=== PATIENT | male | born 1975 | race Caucasian/White ===

== ENCOUNTER 2022-10-16 20:54 | Emergency (ER) | payer MEDICAID, SELFPAY ==
[2022-10-16 21:08] VITALS: BP 152/70; PULSE 79; RESP 16; TEMP 36.7; O2SAT 98; BMI 31.7
--- NOTE | 2022-10-16 21:51 | HMH.EDWNDL ---
Discharge Plan Disposition Patient Disposition: Home, Self-Care Prescriptions Prescriptions: New cephalexin [cephalexin] 500 mg capsule 500 mg PO TID Qty: 30 0RF Referrals Follow up/Referrals: Provider,Referral, MD [Primary Care Provider] - See instructions Activity Restrictions/Add. Instructions Additional Instructions/Restrictions: suture out 10-12 days Clinical Impressions Clinical Impression: Laceration Instructions Patient Instructions: DI for Laceration Repair Discharge ED Provider: Clare (ED)Carter Wound/Laceration HPI General Chief Complaint: Wound/Laceration Stated Complaint: AO 10/16, left knee lac Time Seen by Provider: 10/16/22 21:51 Mode of Arrival: Family Vehicle Source of Information: Patient and Medical Record Limitations: No Limitations Description of Symptoms (Recalled from ER Triage Doc. by RN): 47 yo male presents with CC of accidental self-inflicted laceration from a supervisor transferring and boxing while opening a box. location: left medial patella area. occurred at approx 11am earlier this date. PMH: hypertension,hyperlipidemia. Smokes 1ppd, occasional marijuana use. denies etoh. cleaned with soap/water and bandaged till arrival. wound bed appears clean, beefy red,edges clean, no sign of FB present. UTD on tetanus immunization. Pain 4/10. History of Present Illness HPI narrative: laceration lt thigh with supervisor transferring and boxing today Onset (ago): hour(s) Extremity Location: Left: thigh Place: home Patient tetanus UTD: Yes Context: sharp object use Associated symptoms: none Related Data Previous Rx's Medication Instructions Recorded cephalexin 500 mg capsule 500 mg PO TID #30 caps 10/16/22 Allergies Allergy/AdvReac Type Severity Reaction Status Date / Time No Known Allergies Allergy Verified 10/16/22 21:15 [facility] Disclaimer: The information contained in this section may have been updated after the patient was seen, as this information can be updated by other users. Social History Smoking Status: Current every day smoker alcohol intake: never current occupational status: employed Travel in the last 8 weeks: None ROS Obtained: Yes All systems reviewed & no additional complaints except as documented Physical Exam General General appearance: alert Head Head exam: normocephalic Eye Eye exam: Present PERRL and EOMI ENT ENT exam: Present mucous membranes moist Neck Neck exam: Present trachea midline Respiratory Respiratory exam: Absent respiratory distress Cardiovascular Cardiovascular exam: Present regular rate Abdominal Exam Abdominal exam: Present soft Extremities Exam Extremities exam: Present full ROM Neurological Exam Neurological exam: Present alert, oriented X3 and CN II-XII intact; Absent motor sensory deficit Psychiatric Psychiatric exam: Present normal affect Skin Skin exam: Present other (1 cm lac lt thigh with neurovascular ok and jt ok ); Absent rash Medical Decision Making Medical Records Medical records reviewed: Yes I reviewed the patient's medical records. [facility] Inquiry Pt receiving controlled substance: No Vital Signs: 10/16/22 21:08 Temperature 98.1 F Temperature Source Oral Pulse Rate [Right Brachial] 79 Respiratory Rate 16 Blood Pressure [Right Arm] 152/70 H Blood Pressure Mean [Right Arm] 97 Blood Pressure Source [Right Arm] Automatic Cuff Blood Pressure Position [Right Arm] Sitting 02 Sat by Pulse Oximetry 98 Oxygen Delivery Method Room Air Orders (Tests/Meds): ED MEDICATIONS Generic Name Dose Route Start Last Admin Trade Name Freq PRN Reason Stop Dose Admin Cephalexin HCl 500 mg 10/16/22 22:06 Cephalexin 500mg Capsule PO 10/16/22 22:07 ONCE ONE Medical Decision Narrative: laceration lt thigh with neurovascular ok and no fb and no evid of infection and sutured and suture out 10-12 days Procedures Laceration Laceration 1: Site: lower extremity Side (If applicable): left Size
[2022-10-16 22:22] VITALS: BP 146/90; PULSE 67; RESP 18; TEMP 36.6; O2SAT 98
== END 2022-10-16 22:22 | disposition home or self-care (01) ==
PROVIDERS: Emergency Provider Emergency Medicine
DX: S71.112A Laceration without foreign body, left thigh, initial encounter (principal); F17.200 Nicotine dependence, unspecified, uncomplicated; W26.8XXA Contact with other sharp object(s), not elsewhere classified, initial encounter
CPT/HCPCS: 12031; 99283; 99284

== ENCOUNTER 2023-04-27 07:39 | Emergency (ER) | payer SELFPAY ==
[2023-04-27 07:40] VITALS: BP 167/109; PULSE 85; RESP 18; TEMP 36.7; O2SAT 97; BMI 29.4
[2023-04-27 07:51] LABS: Influenza A, PCR Not Detected (NotDetected); Influenza B, PCR Not Detected (NotDetected)
[2023-04-27 08:00] VITALS: BP 139/92; PULSE 96; RESP 18; O2SAT 96
--- NOTE | 2023-04-27 08:01 | PC.NURSE ---
DR STAHL AT BEDSIDE
--- NOTE | 2023-04-27 08:04 | XR_ITS ---
PROCEDURE INFORMATION: Exam: XR Chest Exam date and time: 04/27/2023 8:13 AM Age: 48 years old Clinical indication: Cough and shortness of breath; Smoker's cough; Additional info: SOA TECHNIQUE: Imaging protocol: Radiologic exam of the chest. Views: 1 view. COMPARISON: No relevant prior studies available. FINDINGS: Lungs: Unremarkable. No consolidation. Pleural spaces: Unremarkable. No pleural effusion. No pneumothorax. Heart/Mediastinum: Unremarkable. No cardiomegaly. Bones/joints: Unremarkable. IMPRESSION: No acute findings.
[2023-04-27 08:13] LABS: Coronavirus 19, PCR Detected (NotDetected)
--- NOTE | 2023-04-27 08:23 | HMH.EDGENADL ---
Discharge Plan Disposition Patient Disposition: Home, Self-Care Prescriptions Prescriptions: No Action lisinopril 20 mg tablet 20 mg PO DAILY Patient Comments: TAKE 1 TABLET BY MOUTH EVERY DAY rosuvastatin 20 mg tablet 20 mg PO DAILY Referrals Follow up/Referrals: Provider,Referral, [Primary Care Provider] - See instructions Activity Restrictions/Add. Instructions Additional Instructions/Restrictions: Please follow-up with your primary care provider. Please return to the emergency department if you develop any new or worsening symptoms or become concerned for your health. Clinical Impressions Clinical Impression: COVID-19, Chest congestion Discharge ED Provider: Mikael Pillai General Adult HPI General Chief complaint: Upper Respiratory Infection Stated complaint: left ear stopped up Time Seen by Provider: 04/27/23 07:59 Mode of Arrival: Ambulatory Source of Information: Patient Limitations: No Limitations Description of Symptoms (Recalled from ER Triage Doc. by RN): pt reports congestion and L ear being stopped up for 2 days History of Present Illness HPI narrative: 48-year-old male, history of hypertension hyperlipidemia, smoker presents with sinus congestion and chest congestion and left ear fullness. Symptoms have been ongoing for the last couple of days. Denies any fevers. Denies productive cough. No history of COPD. Related Data Home Medications Medication Instructions Recorded Confirmed lisinopril 20 mg tablet 20 mg PO DAILY 04/27/23 04/27/23 rosuvastatin 20 mg tablet 20 mg PO DAILY 04/27/23 04/27/23 Allergies Allergy/AdvReac Type Severity Reaction Status Date / Time No Known Allergies Allergy Verified 04/27/23 07:51 [facility] Disclaimer: The information contained in this section may have been updated after the patient was seen, as this information can be updated by other users. Social History (Updated 10/16/22 @ 22:11 by Carter Sparks (ED)MD) Smoking Status: Current every day smoker alcohol intake: never current occupational status: employed Travel in the last 8 weeks: None ROS Obtained: Yes All systems reviewed & no additional complaints except as documented Physical Exam General General appearance: alert and in no apparent distress Head Head exam: atraumatic and normocephalic Eye Eye exam: Present normal appearance, PERRL and EOMI ENT ENT exam: Present normal oropharynx, TM's normal bilaterally (Mild serous effusion of the left ear, no evidence of infection) and normal external ear exam Neck Neck exam: Present normal inspection and full ROM Chest Chest inspection: Present normal inspection and symmetric chest wall rise; Absent tenderness Respiratory Respiratory exam: Present normal lung sounds bilaterally; Absent respiratory distress Cardiovascular Cardiovascular exam: Present regular rate and normal rhythm Abdominal Exam Abdominal exam: Present soft; Absent distention, tenderness or guarding Extremities Exam Extremities exam: Present normal inspection; Absent edema or joint swelling Back Exam Back exam: Present normal inspection; Absent tenderness Neurological Exam Neurological exam: Present alert and oriented X3; Absent motor sensory deficit Psychiatric Psychiatric exam: Present normal affect and normal mood Skin Skin exam: Present warm, dry and normal color Lymphatic Lymphatic Findings: no adenopathy Medical Decision Making Medical Records Medical records reviewed: Yes I reviewed the patient's medical records. [facility] Inquiry Pt receiving controlled substance: No [facility] was queried for this patient: No Vital Signs: 04/27/23 07:40 04/27/23 08:00 Temperature 98.0 F Temperature Source Oral Pulse Rate 96 H Pulse Rate [Left Radial] 85 Respiratory Rate 18 18 Blood Pressure 139/92 H Blood Pressure [Right Arm] 167/109 H Blood Pressure Mean 108 Blood Pressure Mean [Right Arm] 128 Blood Pressure Source [Right Arm]
[2023-04-27 08:28] VITALS: BP 153/98; PULSE 78; RESP 18; TEMP 36.6; O2SAT 96
== END 2023-04-27 08:29 | disposition home or self-care (01) ==
PROVIDERS: Emergency Provider Emergency Medicine
DX: U07.1 COVID-19 (principal); I10 Essential (primary) hypertension; E78.5 Hyperlipidemia, unspecified; F17.200 Nicotine dependence, unspecified, uncomplicated
CPT/HCPCS: 71045; 87636; 99283